=== PATIENT | male | born 1970 | race Caucasian/White ===

== ENCOUNTER 2023-05-11 15:30 | Outpatient (RCR) | payer BC, SELFPAY | END 2023-09-08 23:59 | disposition home or self-care (01) | PROVIDERS: PCP Family Medicine; Visit Provider Physician Assistant | DX: F07.81 Postconcussional syndrome (principal); Z51.89 Encounter for other specified aftercare | CPT/HCPCS: 97110; 97140; 97162 ==

== ENCOUNTER 2025-08-06 15:26 | Outpatient (REF) | payer BC, SELFPAY | END 2025-08-06 15:27 | disposition home or self-care (01) | LOC: NPINS 15:26 | PROVIDERS: PCP Surgery | DX: Z76.89 Persons encountering health services in other specified circumstances (principal) ==